=== PATIENT | female | born 1960 | race Caucasian/White ===

== ENCOUNTER 2016-09-17 06:41 | Emergency (ER) | payer MEDICAID ==
[~2016-09-17] VITALS: Ht 167.6 cm; Wt 75.0 kg
[~2016-09-17 06:41] MED LIST: CHOL50006 PO; LEVO75TA3 PO; LISI20TA PO
[2016-09-17 06:44] VITALS: BP 115/71; PULSE 114; RESP 16; TEMP 98.3; O2SAT 100
[2016-09-17] MEDS ORDERED: SODIUM CHLOR 0.9% 1000 ML INJ 1,000 ML IV SCH (07:18)
[2016-09-17] MEDS ORDERED: CHOL400D2 PO (07:23)
[2016-09-17] MEDS ORDERED: ADVA100A INH (07:23)
[2016-09-17] MEDS ORDERED: ALBU6.7H INH (07:23)
[2016-09-17] MEDS ORDERED: TOPI1CAP25 PO (07:23)
[2016-09-17] MEDS ORDERED: [UNRECOGNIZED DRUG - OTHER] (07:23)
[2016-09-17] MEDS ORDERED: OMEP20TA PO (07:23)
[2016-09-17 07:24] VITALS: O2SAT 97
[2016-09-17] MEDS ORDERED: MORPHINE SULFATE 4 MG/ML INJ IV PUSH ONE (07:30)
[2016-09-17] MEDS ORDERED: ONDANSETRON HCL 4 MG/2 ML VIAL IVP ONE (07:30)
[2016-09-17] MEDS ORDERED: SODIUM CHLOR 0.9% 1000 ML INJ 1,000 ML IV ONE (07:30)
[2016-09-17] MEDS ORDERED: SODIUM CHLORIDE 0.9% FLUSH 10 ML FLUSH IV FLUSH PRN (07:30)
--- NOTE | 2016-09-17 07:32 | PD ---
HPI Chief Complaint: Abdominal Pain Time Seen by Provider: 07:13 Travel History International Travel<30 days: No Contact w/Intl Traveler<30days: No Traveled to known affect area: No History of Present Illness HPI Patient is a 55-year-old female who presents to emergency with complaints of abdominal pain. Patient reports that she began to have abdominal pain 3 days ago, reports the pain is located to her lower abdomen. She reports that she has been on a low-carb diet, reports that the past 3 days, she has increased her carbohydrate intake has her family has been in town. She reports that she has noticed decreased bowel movements, patient did have 2 small bowel movements yesterday. Reports in increased crampy sensation to her lower abdomen. Patient reports increased dysuria, urinary urgency and frequency as well. Denies vaginal discharge or bleeding. Denies any nausea or vomiting. Reports constipation or diarrhea. Patient denies any recent travels or trips. Denies any new medications. Reports history of a hysterectomy in the past. PFSH Past Medical History Cardiovascular Problems: Yes (HTN) Past Surgical History Hysterectomy: Yes Social History Tobacco Use: No Allergies-Medications (Allergen,Severity, Reaction): Coded Allergies: Egg Allergy (Verified Allergy, Severe, Anaphylaxis, 09/17/16) Shellfish (Verified Allergy, Severe, Anaphylaxis, 09/17/16) Penicillin (Verified Allergy, Unknown, Anaphylaxis, 09/17/16) Reported Meds & Prescriptions Reported Meds & Active Scripts Active Reported Omeprazole 20 Mg Tab 20 Mg PO DAILY Proventil Hfa 6.7 GM Inh (Albuterol Sulfate) 90 Mcg/Act Aer 1 Puff INH Q4H PRN Advair Diskus Inh (Fluticasone-Salmeterol Inh) 100-50 Mcg/Blist Aer 1 Puff INH BID Rinse mouth after use. Trokendi Xr (Topiramate) 25 Mg Cap 25 Mg PO DAILY [phenterimine] Vitamin D (Cholecalciferol) 400 Unit/Ml Drops 400 Units PO DAILY Levothyroxine (Levothyroxine Sodium) 75 Mcg Tab 75 Mcg PO DAILY Lisinopril-Hctz 20-12.5 Mg Tab 1 Tab PO DAILY Review of Systems General / Constitutional: No: Fever, Chills Eyes: No: Visual changes HENT: No: Headaches Cardiovascular: No: Chest Pain or Discomfort Respiratory: No: Shortness of Breath Gastrointestinal: Positive: Nausea, Abdominal Pain, Constipation, No: Vomiting , Diarrhea Genitourinary: No: Dysuria Musculoskeletal: No: Pain Skin: No Rash Neurologic: No: Weakness Psychiatric: No: Depression Endocrine: No: Polydipsia Hematologic/Lymphatic: No: Easy Bruising Physical Exam Narrative GENERAL: Mild distress SKIN: Focused skin assessment warm/dry. HEAD: Atraumatic. Normocephalic. EYES: Pupils equal and round. No scleral icterus. No injection or drainage. ENT: No nasal bleeding or discharge. Mucous membranes pink and moist. NECK: Trachea midline. No JVD. CARDIOVASCULAR: Regular rate and rhythm. No murmur appreciated. RESPIRATORY: No accessory muscle use. Clear to auscultation. Breath sounds equal bilaterally. GASTROINTESTINAL: Abdomen soft, nondistended, mild tenderness to lower abdomen. No rebound or guarding. Hepatic and splenic margins not palpable. MUSCULOSKELETAL: No obvious deformities. No clubbing. No cyanosis. No edema. NEUROLOGICAL: Awake and alert. No obvious cranial nerve deficits. Motor grossly within normal limits. Normal speech. PSYCHIATRIC: Appropriate mood and affect; insight and judgment normal. Data Data Last Documented VS Vital Signs Date Time Temp Pulse Resp B/P Pulse Ox O2 Delivery O2 Flow Rate FiO2 09/17/16 07:54 97 18 102/64 97 Nasal Cannula 2 09/17/16 06:44 98.3 Orders Complete Blood Count With Diff (09/17/16 07:18) Comprehensive Metabolic Panel (09/17/16 07:18) Lipase (09/17/16 07:18) Prothrombin Time / Inr (Pt) (09/17/16 07:18) Act Partial Throm Time (Ptt) (09/17/16 07:18) Urinalysis - C+S If Indicated (09/17/16 07:18) Ct Abd/Pel W Iv Contrast(Rout) (09/17/16 07:18) Iv Access Insert/Monitor (09/17/16 07:18) Ecg Monitoring (09/17/16 07:18) Oximetry (09/17/16 07:18) Morphine Inj (Morphine Inj) (09/17/16 07:30) Ondansetron Inj (Zofran Inj) (09/17/16 07:30) Sodium Chlor 0.9% 1000 Ml Inj (Ns 1000 M (09/17/16 07:18) Sodium Chloride 0.9% Flush (Ns Flush) (09/17/16 07:30) Sodium Chlor 0.9% 1000 Ml Inj (Ns 1000 M (09/17/16 07:30) Iohexol 350 Inj (Omnipaque 350 Inj) (09/17/16 09:14) Labs Laboratory Tests Test 09/17/16 07:49 White Blood Count 8.6 TH/MM3 Red Blood Count 3.98 MIL/MM3 Hemoglobin 12.4 GM/DL Hematocrit 35.9 % Mean Corpuscular Volume 90.1 FL Mean Corpuscular Hemoglobin 31.2 PG Mean Corpuscular Hemoglobin 34.6 % Concent Red Cell Distribution Width 13.1 % Platelet Count 276 TH/MM3 Mean Platelet Volume 6.4 FL Neutrophils (%) (Auto) % Lymphocytes (%) (Auto) % Monocytes (%) (Auto) % Eosinophils (%) (Auto) % Basophils (%) (Auto) % Neutrophils # (Auto) TH/MM3 Lymphocytes # (Auto) TH/MM3 Monocytes # (Auto) TH/MM3 Eosinophils # (Auto) TH/MM3 Basophils # (Auto) TH/MM3 CBC Comment AUTO DIFF Differential Total Cells 100 Counted Neutrophils % (Manual) 34 % Band Neutrophils % 5 % Lymphocytes % 27 % Monocytes % 26 % Eosinophils % 6 % Basophils % 2 % Neutrophils # (Manual) 3.4 TH/MM3 Differential Comment FINAL DIFF MANUAL Atypical Lymphocytes % Prothrombin Time 9.7 SEC Prothromb Time International 0.9 RATIO Ratio Activated Partial 25.4 SEC Thromboplast Time Urine Color LIGHT-YELLOW Urine Turbidity CLEAR Urine pH 8.5 Urine Specific [place] 1.013 Urine Protein NEG mg/dL Urine Glucose (UA) NEG mg/dL Urine Ketones NEG mg/dL Urine Occult Blood NEG Urine Nitrite NEG Urine Bilirubin NEG Urine Urobilinogen LESS THAN 2.0 MG/DL Urine Leukocyte Esterase MOD Urine RBC 1 /hpf Urine WBC 7 /hpf Urine Squamous Epithelial 1 /hpf Cells Microscopic Urinalysis Comment CULT NOT INDICATED Sodium Level 137 MEQ/L Potassium Level 3.8 MEQ/L Chloride Level 104 MEQ/L Carbon Dioxide Level 26.8 MEQ/L Anion Gap 6 MEQ/L Blood Urea Nitrogen 12 MG/DL Creatinine 0.76 MG/DL Estimat Glomerular Filtration 79 ML/MIN Rate Random Glucose 109 MG/DL Calcium Level 9.0 MG/DL Total Bilirubin 0.5 MG/DL Aspartate Amino Transf 13 U/L (AST/SGOT) Alanine Aminotransferase 30 U/L (ALT/SGPT) Alkaline Phosphatase 86 U/L Total Protein 7.1 GM/DL Albumin 3.4 GM/DL Lipase 102 U/L [facility] Medical Decision Making Medical Screen Exam Complete: Yes Emergency Medical Condition: Yes Interpretation(s) Vital Signs Date Time Temp Pulse Resp B/P Pulse Ox O2 Delivery O2 Flow Rate FiO2 09/17/16 06:44 98.3 114 16 115/71 100 Differential Diagnosis Differential includes appendicitis, gastroenteritis, gastritis, electrolyte abnormality, cystitis Narrative Course Patient is a 55 year old female who presents to ER with complaints of lower abdominal pain which has been constant for the past 3 days. Reports dysuria with urinary urgency and frequency, with constipation. Reports that she normally has daily bowel movements, reports that she only had 2 small bowel movements yesterday. Patient with hx of hysterectomy in the past. Plan to obtain labs as well as ct studies of abdomen and pelvis. Will give IVF and antiemetics as well as pain medications. Vital Signs Date Time Temp Pulse Resp B/P Pulse Ox O2 Delivery O2 Flow Rate FiO2 09/17/16 07:54 97 18 102/64 97 Nasal Cannula 2 09/17/16 07:54 18 09/17/16 07:24 97 Nasal Cannula 2 09/17/16 06:44 98.3 114 16 115/71 100 Laboratory Tests Test 09/17/16 07:49 White Blood Count 8.6 TH/MM3 (4.0-11.0) Red Blood Count 3.98 MIL/MM3 (4.00-5.30) Hemoglobin 12.4 GM/DL (11.6-15.3) Hematocrit 35.9 % (35.0-46.0) Mean Corpuscular Volume 90.1 FL (80.0-100.0) Mean Corpuscular Hemoglobin 31.2 PG (27.0-34.0) Mean Corpuscular Hemoglobin 34.6 % Concent (32.0-36.0) Red Cell Distribution Width 13.1 % (11.6-17.2) Platelet Count 276 TH/MM3 (150-450) Mean Platelet Volume 6.4 FL (7.0-11.0) Neutrophils (%) (Auto) % (16.0-70.0) Lymphocytes (%) (Auto) % (9.0-44.0) Monocytes (%) (Auto) % (0.0-8.0) Eosinophils (%) (Auto) % (0.0-4.0) Basophils (%) (Auto) % (0.0-2.0) Neutrophils # (Auto) TH/MM3 (1.8-7.7) Lymphocytes # (Auto) TH/MM3 (1.0-4.8) Monocytes # (Auto) TH/MM3 (0-0.9) Eosinophils # (Auto) TH/MM3 (0-0.4) Basophils # (Auto) TH/MM3 (0-0.2) CBC Comment AUTO DIFF Differential Total Cells 100 Counted Neutrophils % (Manual) 34 % (16-70) Band Neutrophils % 5 % (0-6) Lymphocytes % 27 % (9-44) Monocytes % 26 % (0-8) Eosinophils % 6 % (0-4) Basophils % 2 % (0-2) Neutrophils # (Manual) 3.4 TH/MM3 (1.8-7.7) Differential Comment FINAL DIFF MANUAL Atypical Lymphocytes % (0-0) Prothrombin Time 9.7 SEC (9.8-11.6) Prothromb Time International 0.9 RATIO Ratio Activated Partial 25.4 SEC Thromboplast Time (24.3-30.1) Urine Color LIGHT-YELLOW (YELLW/STRAW) Urine Turbidity CLEAR (CLEAR) Urine pH 8.5 (5.0-8.5) Urine Specific [place]olley 1.013 (1.002-1.035) Urine Protein NEG mg/dL (NEG-TRACE) Urine Glucose (UA) NEG mg/dL (NEG) Urine Ketones NEG mg/dL (NEG) Urine Occult Blood NEG (NEG) Urine Nitrite NEG (NEG) Urine Bilirubin NEG (NEG) Urine Urobilinogen LESS THAN 2.0 MG/DL (LESS THAN 2.0) Urine Leukocyte Esterase MOD (NEG) Urine RBC 1 /hpf (0-3) Urine WBC 7 /hpf (0-5) Urine Squamous Epithelial 1 /hpf (0-5) Cells Microscopic Urinalysis Comment CULT NOT INDICATED Sodium Level 137 MEQ/L (136-145) Potassium Level 3.8 MEQ/L (3.5-5.1) Chloride Level 104 MEQ/L (98-107) Carbon Dioxide Level 26.8 MEQ/L (21.0-32.0) Anion Gap 6 MEQ/L (5-15) Blood Urea Nitrogen 12 MG/DL (7-18) Creatinine 0.76 MG/DL (0.50-1.00) Estimat Glomerular Filtration 79 ML/MIN (>89) Rate Random Glucose 109 MG/DL (74-106) Calcium Level 9.0 MG/DL (8.5-10.1) Total Bilirubin 0.5 MG/DL (0.2-1.0) Aspartate Amino Transf 13 U/L (15-37) (AST/SGOT) Alanine Aminotransferase 30 U/L (10-53) (ALT/SGPT) Alkaline Phosphatase 86 U/L (45-117) Total Protein 7.1 GM/DL (6.4-8.2) Albumin 3.4 GM/DL (3.4-5.0) Lipase 102 U/L (73-393) Last Impressions Abdomen/Pelvis CT 09/17/16 0718 Signed Impressions: Service Date/Time: Saturday, September 17, 2016 09:07 - CONCLUSION: Inflammation around the sigmoid colon adjacent to numerous diverticula are suspicious for diverticulitis. There is a trace free fluid throughout the pelvis without drainable abscess or mass. Scott Gamble MD I reviewed all labs and all studies with patient in detail, patient with sigmoid diverticulitis. Patient safe to be discharged to home with outpatient follow up. Understands need to follow up with her pcp as well as gi as outpatient, will return to ER if she develops worsening or progressing symptoms. Diagnosis Primary Impression: Diverticulitis Qualified Code: K57.92 - Diverticulitis of intestine without perforation or abscess without bleeding, unspecified part of intestinal tract Additional Impression: Abdominal pain Qualified Code: R10.32 - Left lower quadrant pain Patient Instructions: General Instructions, Narcotic given in the ED Additional Instructions: Please follow-up with your primary care doctor in 24-48 hours Please take all antibiotics as prescribed Return to emergency room if symptoms worsen or progress Return to the emergency room as needed Please follow-up with well drill operator as soon as possible Please bring the copy of your radiology report to doctor's office for follow-up on all findings from today Med/Other Pt SpecificInfo: Prescription(s) given Scripts Metronidazole (Flagyl)500 Mg [id number] Mg PO QID 10 Days Ref 0 Prov:Lucia Melvin DO 09/17/16 Ciprofloxacin (Cipro)500 Mg [id number] Mg PO BID 10 Days Ref 0 Prov:Lucia Melvin DO 09/17/16 Disposition: 01 DISCHARGE HOME Condition: Stable Lucia Melvin DO Sep 17, 2016 07:32
[2016-09-17 07:54] VITALS: BP 102/64; PULSE 97; RESP 18; O2SAT 97
[2016-09-17 08:15] LABS: HEMATOCRIT 35.9 % (35.0-46.0); MEAN CELL VOLUME 90.1 FL (80.0-100.0); MEAN CORPUSCULAR HEMOGLOBIN 31.2 PG (27.0-34.0); MEAN CORPUSCULAR HGB CONC 34.6 % (32.0-36.0); PLATELET COUNT 276 TH/MM3 (150-450); RED BLOOD COUNT 3.98 MIL/MM3 (4.00-5.30); RED CELL DISTRIBUTION WIDTH 13.1 % (11.6-17.2); WHITE BLOOD COUNT 8.6 TH/MM3 (4.0-11.0)
[2016-09-17 08:16] LABS: HEMO FLAGS AUTO DIFF
[2016-09-17 08:23] LABS: APTT (PATIENT) 25.4 SEC (24.3-30.1); INTERNATIONAL NORMALIZED RATIO 0.9 RATIO; PROTHROMBIN TIME - PATIENT 9.7 SEC (9.8-11.6)
[2016-09-17 08:39] LABS: ALT (GPT) 30 U/L (10-53); ANION GAP 6 MEQ/L (5-15); AST (GOT) 13 U/L (15-37); BICARBONATE 26.8 MEQ/L (21.0-32.0); BLOOD UREA NITROGEN 12 MG/DL (7-18); CHLORIDE 104 MEQ/L (98-107); GLOMERULAR FILTRATION RATE 79 ML/MIN (>89); POTASSIUM 3.8 MEQ/L (3.5-5.1); SODIUM (NA) 137 MEQ/L (136-145)
[2016-09-17 08:42] LABS: ALKALINE PHOSPHATASE 86 U/L (45-117); TOTAL BILIRUBIN ADULT 0.5 MG/DL (0.2-1.0)
[2016-09-17 08:44] LABS: BLOOD, URINE NEG (NEG); COMMENT (UR) CULT NOT INDICATED; CULTURE IF INDICATED CULT NOT INDICATED; GLUCOSE,URINE NEG (NEG); KETONE, URINE NEG (NEG); NITRITE,URINE NEG (NEG); PH, URINE 8.5 (5.0-8.5); SQUAMOUS EPITHELIAL CELL URINE 1 /hpf (0-5); URINE COLOR LIGHT-YELLOW (YELLW/STRAW)
[2016-09-17 09:03] LABS: BANDS 5 % (0-6); BASOPHILS 2 % (0-2); EOSINOPHILS 6 % (0-4); NEUTROPHIL # MANUAL DIFF 3.4 TH/MM3 (1.8-7.7); POLYS (SEG NEUTROPHILS) 34 % (16-70); WBC DIFF SAMPLE 100
[2016-09-17 09:05] LABS: SCAN/DIFF FINAL DIFF MANUAL
[2016-09-17] MEDS ORDERED: IOHEXOL 350 MG/ML 10 ML VIAL (for RAD DIAG) IV ONE (09:14)
--- NOTE | 2016-09-17 09:26 | RADRPT ---
EXAM DATE/TIME: 09/17/2016 09:07 [facility] COMPARISON: No previous studies available for comparison. INDICATIONS : Lower abdominal pain. IV CONTRAST: 68 cc Omnipaque 350 (iohexol) IV ORAL CONTRAST: No oral contrast ingested. RADIATION DOSE: 9.96 CTDIvol (mGy) MEDICAL HISTORY : Cardiovascular disease. SURGICAL HISTORY : Hysterectomy. ENCOUNTER: Initial ACUITY: 1 day PAIN SCALE: 5/10 LOCATION: Bilateral lower quadrant abdomen. TECHNIQUE: Volumetric scanning of the abdomen and pelvis was performed. Using automated exposure control and ad justment of the mA and/or kV according to patient size, radiation dose was kept as low as reasonably achievable to obtain optimal diagnostic quality images. DICOM format image data is available electro nically for review and comparison. FINDINGS: LOWER LUNGS: The visualized lower lungs are clear. LIVER: Homogeneous density without lesion. There is no dilation of the biliary tree. Few non- calcified ga llstones. SPLEEN: Normal size without lesion. PANCREAS: Within normal limits. KIDNEYS: Normal in size and shape. There is no mass, stone or hydronephrosis. ADRENAL GLANDS: Within normal limits. VASCULAR: There is no aortic aneurysm. BOWEL/MESENTERY: There is definite inflammation with wall indistinctness and a tiny amount of fluid adjacent to the si gmoid colon suspicious for diverticulitis. I do not see drainable fluid collection or abscess. The ap pendix is normal. ABDOMINAL WALL: Within normal limits. RETROPERITONEUM: There is no lymphadenopathy. BLADDER: No wall thickening or mass. REPRODUCTIVE: Within normal limits. INGUINAL: There is no lymphadenopathy or hernia. MUSCULOSKELETAL: Within normal limits for patient age. CONCLUSION: Inflammation around the sigmoid colon adjacent to numerous diverticula are suspicious for diverticuli tis. There is a trace free fluid throughout the pelvis without drainable abscess or mass. Scott Gamble MD on September 17, 2016 at 9:22 Board Certified Radiologist. This report was verified electronically.
[2016-09-17] MEDS ORDERED: METR-1 PO (09:42)
[2016-09-17] MEDS ORDERED: CIPR-9 PO (09:42)
[2016-09-17] MEDS ORDERED: CIPROFLOXACIN 400 MG PREMIX 200 ML IV ONE (09:45)
[2016-09-17] MEDS ORDERED: metroNIDAZOLE 500 MG INJ 100 ML IV ONE (09:45)
== END 2016-09-17 11:35 | disposition home or self-care (01) ==
LOC: NEPC 06:41
DX: K57.92 Diverticulitis of intestine, part unspecified, without perforation or abscess without bleeding (principal); R30.0 Dysuria; K59.00 Constipation, unspecified; I10 Essential (primary) hypertension; Z79.52 Long term (current) use of systemic steroids; Z79.899 Other long term (current) drug therapy
CPT/HCPCS: 74177; 80053; 81001; 83690; 85007; 85027; 85610; 85730; 96361; 96365; 96367; 96375; 99285; J0744; J2270; J2405; J7030; Q9967

== ENCOUNTER 2016-09-25 01:03 | Observation (INO) | payer MEDICAID, OTHER ==
[~2016-09-25] VITALS: Ht 162.6 cm; Wt 75.0 kg
[2016-09-25] VITALS (11 sets, daily range): BP systolic 85–119; BP diastolic 51–64; PULSE 64–90; RESP 15–18; TEMP 97.8–98.1; O2SAT 96–100
[~2016-09-25 01:03] MED LIST changes: +ADVA100A INH; +ALBU6.7H INH; +CHOL400D2 PO; -CHOL50006 PO; +CIPR-9 PO; +METR-1 PO; +OMEP20TA PO; +TOPI1CAP25 PO; +[UNRECOGNIZED DRUG - OTHER]
[2016-09-25] MEDS ORDERED: VANCOMYCIN INJ 1,000 MG in SODIUM CHLOR 0.9% 250 ML INJ 250 ML IV STA (01:48)
[2016-09-25] MEDS ORDERED: AZTREONAM INJ 2,000 MG in SODIUM CHLORIDE 0.9% INJ 100 ML IV STA (01:48)
[2016-09-25] MEDS ORDERED: metroNIDAZOLE 500 MG INJ 100 ML IV STA (01:48)
[2016-09-25] MEDS ORDERED: SODIUM CHLOR 0.9% 1000 ML INJ 1,000 ML IV ONE ×2 (01:48)
[2016-09-25] MEDS ORDERED: SODIUM CHLOR 0.9% 1000 ML INJ 400 ML IV ONE (01:48)
[2016-09-25 01:57] LABS: BASOPHIL # 0.1 TH/MM3 (0-0.2); BASOPHIL % 0.7 % (0.0-2.0); EOSINOPHIL # 0.9 TH/MM3 (0-0.4); EOSINOPHIL % 10.8 % (0.0-4.0); HEMATOCRIT 38.8 % (35.0-46.0); LYMPH % 18.7 % (9.0-44.0); LYMPHOCYTE # 1.6 TH/MM3 (1.0-4.8); MEAN CELL VOLUME 89.8 FL (80.0-100.0); MEAN CORPUSCULAR HEMOGLOBIN 31.1 PG (27.0-34.0); MEAN CORPUSCULAR HGB CONC 34.6 % (32.0-36.0); MONO % 47.1 % (0.0-8.0); NEUT % 22.7 % (16.0-70.0); PLATELET COUNT 401 TH/MM3 (150-450); RED BLOOD COUNT 4.32 MIL/MM3 (4.00-5.30); RED CELL DISTRIBUTION WIDTH 12.8 % (11.6-17.2); WHITE BLOOD COUNT 8.6 TH/MM3 (4.0-11.0)
[2016-09-25 02:00] LABS: BLOOD, URINE NEG (NEG); GLUCOSE,URINE NEG (NEG); HYALINE CAST, URINE 1 /lpf (RARE); KETONE, URINE NEG (NEG); NITRITE,URINE NEG (NEG); SQUAMOUS EPITHELIAL CELL URINE <1 /hpf (0-5); URINE COLOR YELLOW (YELLW/STRAW)
--- NOTE | 2016-09-25 02:07 | PD ---
HPI Chief Complaint: Abdominal Pain Time Seen by Provider: 01:36 Travel History International Travel<30 days: No Contact w/Intl Traveler<30days: No Traveled to known affect area: No History of Present Illness HPI The patient is a 55 year old female who presents to the [facility] emergency department with a history of not feeling well over the past week. The patient was seen on a Sunday in the emergency department was diagnosed with diverticulitis. The patient reports that the lower abdominal pain has improved since starting the ciprofloxacin and Flagyl. She does however report that this evening after eating a bagel and cream cheese few minutes later she began to have a new abdominal pain in the midepigastric and right upper quadrant of the abdomen. She reports that she has had this pain in the past although it was less severe previously. She was told that it was likely related to her gallbladder. She reports that the first time she ever had this type of pain was 2-3 years ago. She reports that she has had a colonoscopy 5 years ago that was reportedly unremarkable. She reports that the diagnosis of diverticulitis with the first occurrence a week ago. She has been taking the antibiotic as prescribed. She reports that she has had chills and a subjective fever. She has not checked her temperature at home. She reports having nausea without vomiting. She reports that the pain is an aching sensation in the upper abdomen. She denies any dysuria, urinary frequency, or urinary urgency. She reports that she has started to have loose stools on Sunday. She reports on she had approximately 15 and since then she has had 4 per day. She denies having any blood in her stool or black or tarry stools. She denies having any known mucus in her stool. On review of systems otherwise, the patient denies any cough, congestion, neck pain, chest pain, shortness of breath ,or neurologic symptoms. The patient incidentally also reports that she has worsening acid reflux over the last week. [facility] Past Medical History Narrative Medical The patient's past medical history is significant for gallstones, hypertension, or ecchymosis of diverticulitis, hypothyroid disorder, acid reflux, asthma. Cardiovascular Problems: Yes (HTN) Diminished Hearing: No Diverticulitis: Yes Gastrointestinal Disorders: Yes (GALL STONES) GERD: Yes Hypertension: Yes Menopausal: Yes Past Surgical History Narrative Surgical The patient's past surgical history is significant for a hysterectomy. Hysterectomy: Yes Social History Alcohol Use: Yes (OCC) Tobacco Use: No Substance Use: No Allergies-Medications (Allergen,Severity, Reaction): Coded Allergies: Egg Allergy (Verified Allergy, Severe, Anaphylaxis, 09/25/16) Shellfish (Verified Allergy, Severe, Anaphylaxis, 09/25/16) Penicillin (Verified Allergy, Unknown, Anaphylaxis, 09/25/16) Reported Meds & Prescriptions Reported Meds & Active Scripts Active Flagyl (Metronidazole) 500 Mg Tab 500 Mg PO QID 10 Days Cipro (Ciprofloxacin HCl) 500 Mg Tab 500 Mg PO BID 10 Days Reported Omeprazole 20 Mg Tab 20 Mg PO DAILY Proventil Hfa 6.7 GM Inh (Albuterol Sulfate) 90 Mcg/Act Aer 1 Puff INH Q4H PRN Advair Diskus Inh (Fluticasone-Salmeterol Inh) 100-50 Mcg/Blist Aer 1 Puff INH BID Rinse mouth after use. [phenterimine] Vitamin D (Cholecalciferol) 400 Unit/Ml Drops 400 Units PO DAILY Levothyroxine (Levothyroxine Sodium) 75 Mcg Tab 75 Mcg PO DAILY Lisinopril-Hctz 20-12.5 Mg Tab 1 Tab PO DAILY Review of Systems Except as stated in HPI: all other systems reviewed are Neg General / Constitutional: No: Fever Eyes: No: Visual changes HENT: No: Headaches Cardiovascular: No: Chest Pain or Discomfort Respiratory: No: Shortness of Breath Gastrointestinal: Positive: Nausea, Diarrhea, Abdominal Pain, Changes in Bowel Habits, Indigestion, No: Vomiting, Hematemesis, Hematochezia, Loss of Appetite Genitourinary: No: Dysuria Musculoskeletal: No: Pain Skin: No Rash Neurologic: No: Weakness Psychiatric: No: Depression Endocrine: No: Polydipsia Hematologic/Lymphatic: No: Easy Bruising Physical Exam Narrative General: The patient is a well-developed well-nourished female in no acute distress. Head and Neck exam: Head is normocephalic atraumatic. Eyes: EOMI, pupils are equal round and reactive to light. Nose: Midline septum with pink mucous membranes Mouth: Dentition unremarkable. Moist mucus membranes. Posterior oropharynx is not erythematous. No tonsillar hypertrophy. Uvula midline. Airway patent. Neck: No palpable lymphadenopathy. No nuchal rigidity. No thyromegaly. Cardiovascular: Regular rate and rhythm without murmurs, gallops, or rubs. No pulse deficit to the extremities on simultaneous auscultation and palpation of her radial artery. Lungs: Clear to auscultation bilaterally. No wheezes, rhonchi, or rales. Abdomen: Soft, with tenderness on palpation of the midepigastric area and right upper quadrant of the abdomen. No guarding, rebound, or rigidity. Negative [place] sign. No other tenderness on palpation of the other quadrants of the abdomen. Normal bowel sounds are audible. Extremities: No clubbing, cyanosis, or edema. 2+ pulses in all 4 extremities. No Tenderness on palpation Back: No spinous process tenderness to palpation. The patient has right-sided CVA tenderness on palpation. Neurologic Exam: Grossly nonfocal. Skin Exam: No rash noted. Intact skin that is warm and dry. Data Data Last Documented VS Vital Signs Date Time Temp Pulse Resp B/P Pulse Ox O2 Delivery O2 Flow Rate FiO2 09/25/16 02:00 83 16 92/61 100 Room Air 09/25/16 01:14 97.8 Orders Electrocardiogram (09/25/16 01:37) Complete Blood Count With Diff (09/25/16 01:37) Comprehensive Metabolic Panel (09/25/16 01:37) C-Reactive Protein (Crp) (09/25/16 01:37) Lipase (09/25/16 01:37) Urinalysis - C+S If Indicated (09/25/16 01:37) Iv Access Insert/Monitor (09/25/16 01:37) Ecg Monitoring (09/25/16 01:37) Oximetry (09/25/16 01:37) Lactic Acid Sepsis Protocol (09/25/16 01:48) Blood Culture (09/25/16 01:48) Sodium Chlor 0.9% 1000 Ml Inj (Ns 1000 M (09/25/16 01:48) Sodium Chlor 0.9% 1000 Ml Inj (Ns 1000 M (09/25/16 01:48) Sodium Chlor 0.9% 1000 Ml Inj (Ns 1000 M (09/25/16 01:48) Vancomycin Inj (Vancomycin Inj) (09/25/16 01:48) Aztreonam Inj (Azactam Inj) (09/25/16 01:48) Metronidazole 500 Mg Inj (Flagyl 500 Mg (09/25/16 01:48) Chest, Single Ap (09/25/16 01:48) Ct Abd/Pel W Iv Contrast(Rout) (09/25/16 ) Iohexol 350 Inj (Omnipaque 350 Inj) (09/25/16 02:39) Enteric Path (Stool) (09/25/16 03:25) C Diff Toxin Pcr (09/25/16 03:25) Stool Wbc (Leukocytes) (09/25/16 03:25) Admit Order (Ed Use Only) (09/25/16 03:25) Labs Laboratory Tests Test 09/25/16 09/25/16 09/25/16 01:44 01:45 01:48 Urine Color YELLOW Urine Turbidity CLEAR Urine pH 5.0 Urine Specific [place] 1.014 Urine Protein NEG mg/dL Urine Glucose (UA) NEG mg/dL Urine Ketones NEG mg/dL Urine Occult Blood NEG Urine Nitrite NEG Urine Bilirubin NEG Urine Urobilinogen LESS THAN 2.0 MG/DL Urine Leukocyte Esterase TRACE Urine RBC LESS THAN 1 /hpf Urine WBC LESS THAN 1 /hpf Urine Squamous Epithelial <1 /hpf Cells Urine Hyaline Casts 1 /lpf Microscopic Urinalysis Comment CULT NOT INDICATED White Blood Count 8.6 TH/MM3 Red Blood Count 4.32 MIL/MM3 Hemoglobin 13.4 GM/DL Hematocrit 38.8 % Mean Corpuscular Volume 89.8 FL Mean Corpuscular Hemoglobin 31.1 PG Mean Corpuscular Hemoglobin 34.6 % Concent Red Cell Distribution Width 12.8 % Platelet Count 401 TH/MM3 Mean Platelet Volume 5.7 FL Neutrophils (%) (Auto) 22.7 % Lymphocytes (%) (Auto) 18.7 % Monocytes (%) (Auto) 47.1 % Eosinophils (%) (Auto) 10.8 % Basophils (%) (Auto) 0.7 % Neutrophils # (Auto) 2.0 TH/MM3 Lymphocytes # (Auto) 1.6 TH/MM3 Monocytes # (Auto) 4.0 TH/MM3 Eosinophils # (Auto) 0.9 TH/MM3 Basophils # (Auto) 0.1 TH/MM3 CBC Comment AUTO DIFF Differential Comment AUTO DIFF CONFIRMED Sodium Level 136 MEQ/L Potassium Level 4.3 MEQ/L Chloride Level 104 MEQ/L Carbon Dioxide Level 24.4 MEQ/L Anion Gap 8 MEQ/L Blood Urea Nitrogen 25 MG/DL Creatinine 1.19 MG/DL Estimat Glomerular Filtration 47 ML/MIN Rate Random Glucose 106 MG/DL Calcium Level 9.1 MG/DL Total Bilirubin 0.1 MG/DL Aspartate Amino Transf 11 U/L (AST/SGOT) Alanine Aminotransferase 21 U/L (ALT/SGPT) Alkaline Phosphatase 75 U/L C-Reactive Protein 0.41 MG/DL Total Protein 7.4 GM/DL Albumin 3.7 GM/DL Lipase 208 U/L Lactic Acid Level 1.4 mmol/L MDM Medical Decision Making Medical Screen Exam Complete: Yes Emergency Medical Condition: Yes Medical Record Reviewed: Yes Interpretation(s) Last Impressions Chest X-Ray 09/25/16 0148 Signed Impressions: Service Date/Time: Sunday, September 25, 2016 02:01 - CONCLUSION: No acute disease. Emmanuel Valiente MD Abdomen/Pelvis CT 09/25/16 0000 Signed Impressions: Service Date/Time: Sunday, September 25, 2016 02:36 - CONCLUSION: 1. The previously noted inflammatory changes adjacent to the sigmoid colon on the prior study has resolved. 2. The appendix is unremarkable. 3. A few tiny stones in the gallbladder. No biliary tract obstruction. 4. No other new or significant changes compared to the prior study. Emmanuel Valiente MD Differential Diagnosis Perforated bowel, versus ischemic bowel, versus abscess, versus acute cholecystitis, versus biliary colic, versus pyelonephritis Narrative Course During the course of the patients emergency department visit, the patients history, examination, and differential diagnosis were reviewed with the patient. The patient had IV access obtained and blood work sent for analysis. The patient was placed on the monitor car operator with oximetry and blood pressure monitoring. An ECG was done on arrival. The patient's ECG reveals a sinus rhythm heart rate of 84, QRS duration 89 ms, QTC 420 ms, no acute ST segment elevation or depression, T waves are inverted in V1. The patient arrives with a blood pressure of 85/52 on initial evaluation. A sepsis workup was started. The patient was initially provided a 30 mL per KG IV fluid bolus. The patient was given Azactam, Flagyl, and vancomycin IV. A CT scan of the abdomen and pelvis was ordered, chest x-ray was ordered, urine will be sent for analysis. The patients laboratory studies were reviewed and remarkable for a white count of 8.6, hemoglobin 13.4, platelets 401 with 47.1 monocytes, eosinophils 10.8 , CMP is remarkable for a BUN of 25, creatinine 1.19, total bilirubin 0.1, AST 11 , C-reactive protein 0.41, lipase 208, lactic acid 1.4, urinalysis shows trace leukocyte esterase, otherwise unremarkable, culture not indicated. Radiology studies were reviewed and remarkable for a chest x-ray that showed no acute abnormality. CT scan of the abdomen and pelvis shows that the previously noted inflammatory changes adjacent to the sigmoid colon on the prior study have resolved, appendix is unremarkable, a few tiny stones in the gallbladder and noted area no biliary tract obstruction, no other new or significant changes compared to prior study. The patients results were discussed with the patient, including the plan of care. I explained that further testing and/ or monitoring is indicated based on the patients history, examination, and/ or laboratory findings. Therefore, I recommended admission for additional evaluation. The patient expressed understanding and was agreeable with this plan. The patient was admitted to the hospital in guarded condition and sent to a bed under the care of the [facility] hospitalist group. Physician Communication Physician Communication The patient's case was discussed with the [facility]ist group who did agree to admit the patient for further evaluation and treatment at this time. Diagnosis Primary Impression: Abdominal pain Qualified Code: R10.11 - Right upper quadrant abdominal pain Additional Impressions: Dehydration Hypotension Qualified Code: I95.9 - Hypotension, unspecified hypotension type Admitting Information Admitting Physician Requests: Admit Shayy Liao MD Sep 25, 2016 02:07
[2016-09-25 02:15] LABS: ALT (GPT) 21 U/L (10-53); ANION GAP 8 MEQ/L (5-15); AST (GOT) 11 U/L (15-37); BICARBONATE 24.4 MEQ/L (21.0-32.0); BLOOD UREA NITROGEN 25 MG/DL (7-18); CHLORIDE 104 MEQ/L (98-107); GLOMERULAR FILTRATION RATE 47 ML/MIN (>89); POTASSIUM 4.3 MEQ/L (3.5-5.1); SODIUM (NA) 136 MEQ/L (136-145)
[2016-09-25 02:17] LABS: ALKALINE PHOSPHATASE 75 U/L (45-117); TOTAL BILIRUBIN ADULT 0.1 MG/DL (0.2-1.0)
[2016-09-25 02:19] LABS: COMMENT (UR) CULT NOT INDICATED; CULTURE IF INDICATED CULT NOT INDICATED
[2016-09-25 02:19] LABS: HEMO FLAGS AUTO DIFF
[2016-09-25] MEDS ORDERED: IOHEXOL 350 MG/ML 10 ML VIAL (for RAD DIAG) IV ONE (02:39)
--- NOTE | 2016-09-25 02:50 | RADRPT ---
EXAM DATE/TIME: 09/25/2016 02:01 [facility] COMPARISON: No previous studies available for comparison. INDICATIONS : Chest pain beginning tonight. MEDICAL HISTORY : None. SURGICAL HISTORY : None. ENCOUNTER: Initial ACUITY: 1 day PAIN SCORE: 7/10 LOCATION: Bilateral chest FINDINGS: A single view of the chest demonstrates the lungs to be symmetrically aerated without evidence of mas s, infiltrate or effusion. The cardiomediastinal contours are unremarkable. Osseous structures are intact. CONCLUSION: No acute disease. Emmanuel Valiente MD on September 25, 2016 at 2:48 Board Certified Radiologist. This report was verified electronically.
[2016-09-25 02:51] LABS: SCAN/DIFF AUTO DIFF CONFIRMED
--- NOTE | 2016-09-25 02:56 | RADRPT ---
EXAM DATE/TIME: 09/25/2016 02:36 [facility] COMPARISON: CT ABDOMEN & PELVIS W CONTRAST, September 17, 2016, 9:07. INDICATIONS : Right upper quadrant pain. IV CONTRAST: 90 cc Omnipaque 350 (iohexol) IV ORAL CONTRAST: No oral contrast ingested. RADIATION DOSE: 11.91 CTDIvol (mGy) MEDICAL HISTORY : Diverticulitis. Gastroesophageal reflux disease. Hypertension.Gallstones. SURGICAL HISTORY : Hysterectomy. ENCOUNTER: Initial ACUITY: 1 day PAIN SCALE: 6/10 LOCATION: Right upper quadrant TECHNIQUE: Volumetric scanning of the abdomen and pelvis was performed. Using automated exposure control and ad justment of the mA and/or kV according to patient size, radiation dose was kept as low as reasonably achievable to obtain optimal diagnostic quality images. DICOM format image data is available electro nically for review and comparison. FINDINGS: LOWER LUNGS: The visualized lower lungs are clear. LIVER: Homogeneous density without lesion. There is no dilation of the biliary tree. A few tiny calcified g allstones. No surrounding inflammatory changes. SPLEEN: Normal size without lesion. PANCREAS: Within normal limits. KIDNEYS: Normal in size and shape. There is no mass, stone or hydronephrosis. ADRENAL GLANDS: Within normal limits. VASCULAR: There is no aortic aneurysm. BOWEL/MESENTERY: The stomach, small bowel, and colon demonstrate no acute abnormality. There is no free intraperitone al air or fluid. There is some scattered diverticula of the sigmoid colon. The previously noted infla mmatory changes have resolved. The appendix is unremarkable. There is stool in the colon. ABDOMINAL WALL: Within normal limits. RETROPERITONEUM: There is no lymphadenopathy. BLADDER: No wall thickening or mass. REPRODUCTIVE: Within normal limits. INGUINAL: There is no lymphadenopathy or hernia. MUSCULOSKELETAL: Within normal limits for patient age. CONCLUSION: 1. The previously noted inflammatory changes adjacent to the sigmoid colon on the prior study has res olved. 2. The appendix is unremarkable. 3. A few tiny stones in the gallbladder. No biliary tract obstruction. 4. No other new or significant changes compared to the prior study. Emmanuel Valiente MD on September 25, 2016 at 2:50 Board Certified Radiologist. This report was verified electronically.
[2016-09-25] MEDS ORDERED: ACETAMINOPHEN 325 MG TAB PO PRN (03:30)
[2016-09-25] MEDS ORDERED: SENNOSIDES 8.6 MG TAB PO PRN (03:30)
[2016-09-25] MEDS ORDERED: LACTULOSE SYRUP 20 GM/30 ML CUP PO PRN (03:30)
[2016-09-25] MEDS ORDERED: BISACODYL 10 MG SUPP RECTAL PRN (03:30)
[2016-09-25] MEDS ORDERED: ONDANSETRON HCL 4 MG/2 ML VIAL IVP PRN (03:30)
[2016-09-25] MEDS ORDERED: NALOXONE HCL 0.4 MG/ML AMP IV PRN (03:30)
[2016-09-25] MEDS ORDERED: SODIUM CHLORIDE 0.9% FLUSH 10 ML FLUSH IV FLUSH PRN (03:30)
[2016-09-25] MEDS ORDERED: MAGNESIUM HYDROXIDE SUSP 30 ML CUP PO PRN (03:30)
[2016-09-25] MEDS: SODIUM CHLOR 0.9% 1000 ML INJ 1,000 ML IV SCH ×3 (03:45→23:29)
[2016-09-25] MEDS: LEVOTHYROXINE SODIUM 75 MCG TAB PO SCH (06:49)
[2016-09-25] MEDS: DOCUSATE SODIUM 50 MG/SENNA 8.6 MG TAB PO SCH ×2 (07:24→20:30)
[2016-09-25] MEDS ORDERED: metroNIDAZOLE 500 MG TAB PO SCH (09:00)
[2016-09-25] MEDS: BUDESONIDE-FORMOTEROL 80/4.5 MCG INHALER INH SCH ×2 (09:00→20:29)
[2016-09-25] MEDS ORDERED: CIPROFLOXACIN 500 MG TAB PO SCH (09:00)
[2016-09-25] MEDS ORDERED: PANTOPRAZOLE SOD 20 MG DELAYED RELEASE TAB PO SCH (09:00)
--- NOTE | 2016-09-25 10:11 | HP.UPD ---
H&P Update Note There is a 55-year-old female who last week was treated for diverticulitis. She also was diagnosed with gallstones. She received a course of antibiotics. That was followed by diarrhea starting last . The diarrhea got worse than better. Yesterday she has a severe auto 4 hours of right lower quadrant abdominal pain. She did have some chills and sweats but she doesn't know whether she had any fever. The pain is mostly in the right upper quadrant. Very tender on palpation. She did have nausea but no vomiting. No blood in her stools. She was seen by the undersigned's morning of . She is to continue her analgesics, antibiotics, IV fluids, she is also to have GI consultation, send stool for C. difficile and check HIDA scan. Full history and physical to follow Carmen Almanzar MD Sep 25, 2016 10:08
[2016-09-25 10:41] LABS: C. DIFF EPI 027 PRESUMPTIVE NEGATIVE (NEGATIVE); C. DIFF TOXIN PCR NEGATIVE (NEGATIVE)
[2016-09-25] MEDS ORDERED: MORPHINE SULFATE 8 MG/ML INJ IV PUSH PRN (11:00)
[2016-09-25] MEDS ORDERED: SINCALIDE 5 MCG/5 ML VIAL IV ONE (13:14)
--- NOTE | 2016-09-25 14:26 | RADRPT ---
EXAM DATE/TIME: 09/25/2016 12:23 [facility] COMPARISON: No previous studies available for comparison. INDICATIONS : Abdominal pain. DOSE: 4 mCi Tc99m Mebrofenin IV MEDICATION: 1.5 mcg Cholecystokinin IV; No symptomatic response. Cholecystokinin was administered by slow infusion over 8 minutes beginning at 60 minutes. MEDICAL HISTORY : Hypertension. Gastroesophageal reflux disease. Diverticulitis. SURGICAL HISTORY : Hysterectomy. ENCOUNTER: Initial ACUITY: 1 day PAIN SCALE: 6/10 LOCATION: Right upper quadrant TECHNIQUE: Following the intravenous administration of radiotracer, dynamic sequential image were performed with continuous acquisition. Time-activity curves were generated. FINDINGS: HEPATIIC KINETICS: There is prompt uptake of radiotracer in the liver. No focal defects are seen. There is normal rate of washout from the hepatic parenchyma. BILIARY CLEARANCE: Activity is first seen in the extrahepatic biliary system at 20> minutes. There is normal excretion into the small bowel. GALLBLADDER: Activity is first seen in the gallbladder at <25> minutes. POST CHOLECYSTOKININ: After Cholecystokinin administration, there is prompt emptying of the gallbladder with a <25>% ejecti on fraction. Common bile duct kinetics are normal and there is no evidence of biliary obstruction. BILIARY ENTERIC REFLUX: None observed. CLINICAL: The patient was asymptomatic after Cholecystokinin administration. CONCLUSION: Normal examination. No evidence of biliary tree obstruction or acute cholecystitis. Scott Gamble MD on September 25, 2016 at 14:23 Board Certified Radiologist. This report was verified electronically.
[2016-09-25] MEDS: LEVOFLOXACIN 750 MG PREMIX INJ 150 ML IV SCH (14:37)
[2016-09-25] MEDS: SODIUM CHLORIDE 0.9% FLUSH 10 ML FLUSH IV FLUSH SCH ×2 (14:37→21:00)
[2016-09-25] MEDS: metroNIDAZOLE 500 MG INJ 100 ML IV SCH ×2 (14:38→18:47)
--- NOTE | 2016-09-25 14:50 | HHI.HP ---
[facility] Shen Slade M.D. Admission Diagnosis Dehydration, diarrhea, hypotension Diagnoses: Chief Complaint: abdominal pain, n/v, diarrhea Travel History International Travel<30 Days: No Contact w/Intl Traveler <30 Da: No Traveled to Known Affected Are: No History of Present Illness This a pleasant 55-year-old white female with significant past medical history hypertension, gallstones, asthma, acid reflux. Patient indicates that she was recently in the emergency room on September 17 with abdominal pain and was diagnosed with diverticulitis and discharged on Cipro and Flagyl. Patient states that she has been trying to stay on a full liquid diet and had been doing relatively well. Yesterday she ate a couple of bites of bagel and cream cheese and immediately after that she had onset of new abdominal pain that was localized to the mid epigastric area and right upper quadrant. Patient indicates she's had this pain in the past although it was less severe and usually controlled taking Tums. She has been told that she has sludge in her gallbladder. Indicates that she had a colonoscopy 5 years ago that was unremarkable. No prior history of upper endoscopy. She denies any prior episodes of diverticulitis oriented and is most recent one. She reports having some nausea but no vomiting, has noted stools becoming more loose, no fevers, has had chills. States she had approximately 15 episodes of loose stools on and now they have been tapering off. Denies any blood in the stools. No hematemesis. She denies any urinary symptoms. Patient does report increase reflux. In the emergency room, patient was evaluated and laboratory workup was completed. CBC was essentially unremarkable, WBC 8.6, hemoglobin 13.4 and hematocrit 38.8. BMP remarkable for dehydration, BUN 25, creatinine 1.19. Lactic acid 1.4. Lipase today. C-reactive protein 0.41. During evaluation, patient was noted with a low blood pressure 85/52. Sepsis workup was started. She received IV fluid challenge as well as started on Azactam, Flagyl and vancomycin IV. Cultures were obtained. A CT of the abdomen was completed that showed improved inflammatory changes adjacent to the sigmoid colon, appendix unremarkable. A few tiny stones in the gallbladder. No biliary obstruction. No other new significant changes compared to the prior study. Patient is now evaluated in her room. HIDA scan has been completed and results are pending. She is tolerating clear liquid diet well. Has not had any other episodes of nausea vomiting. Indicates that stools are becoming more formed. Patient is admitted for further evaluation and treatment Review of Systems Constitutional: COMPLAINS OF: Chills, DENIES: Diaphoretic episodes, Fatigue, Fever, Weight gain, Weight loss, Dizziness, Change in appetite, Night Sweats Endocrine: DENIES: Abnorml menstrual pattern, Heat/cold intolerance, Polydipsia , Polyuria, Polyphagia Eyes: DENIES: Blurred vision, Diplopia, Eye inflammation, Eye pain, Vision loss , Photosensitivity, Double Vision Ears, nose, mouth, throat: DENIES: Tinnitus, Hearing loss, Vertigo, Nasal discharge, Oral lesions, Throat pain, Hoarseness, Ear Pain, Running Nose, Epistaxis, Sinus Pain, Toothache, Odynophagia Respiratory: DENIES: Apneas, Cough, Snoring, Wheezing, Hemoptysis, Sputum production, Shortness of breath Cardiovascular: DENIES: Chest pain, Palpitations, Syncope, Dyspnea on Exertion , PND, Lower Extremity Edema, Orthopnea, Claudication Gastrointestinal: COMPLAINS OF: Abdominal pain, Diarrhea, Nausea, Vomiting, DENIES: Black stools, Bloody stools, Constipation, Difficulty Swallowing, Anorexia Genitourinary: DENIES: Abnormal vaginal bleeding, Dysmenorrhea, Dyspareunia, Sexual dysfunction, Urinary frequency, Urinary incontinence, Urgency, Hematuria , Dysuria, Nocturia, Vaginal discharge Musculoskeletal: DENIES: Joint pain, Muscle aches, Stiffness, Joint Swelling, Back pain, Neck pain Integumentary: DENIES: Abnormal pigmentation, Pruritus, Rash, Nail changes, Breast masses, Breast skin changes, Nipple discharge Hematologic/lymphatic: DENIES: Bruising, Lymphadenopathy Immunologic/allergic: DENIES: Eczema, Urticaria Neurologic: DENIES: Abnormal gait, Headache, Localized weakness, Paresthesias, Seizures, Speech Problems, Tremor, Poor Balance Psychiatric: DENIES: Anxiety, Confusion, Mood changes, Depression, Hallucinations, Agitation, Suicidal Ideation, Homicidal Ideation, Delusions Past Family Social History Past Medical History Hypothyroid Hypertension Gallstones Diverticulitis Asthma Heartburn Past Surgical History Hysterectomy Colonoscopy 5 years ago that was normal Right calcaneus surgery Reported Medications Reported Meds & Active Scripts Active Flagyl (Metronidazole) 500 Mg Tab 500 Mg PO QID 10 Days Cipro (Ciprofloxacin HCl) 500 Mg Tab 500 Mg PO BID 10 Days Reported Omeprazole 20 Mg Tab 20 Mg PO DAILY Proventil Hfa 6.7 GM Inh (Albuterol Sulfate) 90 Mcg/Act Aer 1 Puff INH Q4H PRN Advair Diskus Inh (Fluticasone-Salmeterol Inh) 100-50 Mcg/Blist Aer 1 Puff INH BID Rinse mouth after use. [phenterimine] Vitamin D (Cholecalciferol) 400 Unit/Ml Drops 400 Units PO DAILY Levothyroxine (Levothyroxine Sodium) 75 Mcg Tab 75 Mcg PO DAILY Lisinopril-Hctz 20-12.5 Mg Tab 1 Tab PO DAILY Allergies: Coded Allergies: Egg Allergy (Verified Allergy, Severe, Anaphylaxis, 09/25/16) Shellfish (Verified Allergy, Severe, Anaphylaxis, 09/25/16) Penicillin (Verified Allergy, Unknown, Anaphylaxis, 09/25/16) Active Ordered Medications Inpatient Medications Acetaminophen (Tylenol) 650 mg Q4H PRN PO TEMP > 100.4; Start 09/25/16 at 03:30 Aztreonam 2000 mg/ Sodium Chloride 100 ml @ 200 mls/hr ONCE STAT IV Last administered on 09/25/16 03:48; Start 09/25/16 at 01:48; Stop 09/25/16 at 02:17 ; Status DC Bisacodyl (Dulcolax Supp) 10 mg DAILY PRN RECTAL SEVERE CONSITIPATION; Start at 03:30 Budesonide/ Formoterol Fumarate (Symbicort 80-4.5 Mcg Inh) 2 puff BID INH ; Start 09/25/16 at 09:00 Ciprofloxacin (Cipro) 500 mg BID PO ; Start 09/25/16 at 09:00; Stop 09/25/16 at 10:15; Status DC Lactulose (Lactulose Liq) 30 ml DAILY PRN PO SEVERE CONSITIPATION; Start at 03:30 Levofloxacin/ Dextrose 150 ml @ 100 mls/hr Q24H IV Last administered on 14:37; Start 09/25/16 at 11:00 Levothyroxine Sodium (Synthroid) 75 mcg DAILY@06 PO Last administered on 06:49; Start 09/25/16 at 06:00 Magnesium Hydroxide (Milk Of Magnlorri Liq) 30 ml Q12H PRN PO MILD - MODERATE CONSTIPATION; Start 09/25/16 at 03:30 Metronidazole (Flagyl 500 Mg Inj) 100 ml @ 100 mls/hr Q8H IV Last administered on 09/25/16 14:38; Start 09/25/16 at 11:00 Metronidazole (Flagyl) 500 mg QID PO ; Start 09/25/16 at 09:00; Stop 09/25/16 at 10:15; Status DC Morphine Sulfate (Morphine Inj) 2 mg Q3H PRN IV PUSH PAIN SCALE 4-10; Start at 11:00 Naloxone HCl (Narcan Inj) 0.4 mg UNSCH PRN IV SEE LABEL COMMENTS; Start at 03:30 Ondansetron HCl (Zofran Inj) 4 mg Q6H PRN IVP NAUSEA OR VOMITING; Start at 03:30 Pantoprazole Sodium 20 mg 20 mg DAILY PO Last administered on 09/25/16 14:37; Start 09/25/16 at 09:00 Senna/Docusate Sodium (Michela-Colace) 1 tab BID PO ; Start 09/25/16 at 09:00 Sennosides (Senokot) 17.2 mg Q12H PRN PO MODERATE - SEVERE CONSTIPATION; Start 09/25/16 at 03:30 Sodium Chloride (NS 1000 ml Inj) 1,000 ml @ 100 mls/hr Q10H IV Last administered on 09/25/16 14:38; Start 09/25/16 at 03:29 Sodium Chloride (NS Flush) 2 ml BID IV FLUSH Last administered on 09/25/16 14: 37; Start 09/25/16 at 09:00 Vancomycin HCl 1000 mg/Sodium Chloride 250 ml @ 250 mls/hr ONCE STAT IV Last administered on 09/25/16 03:44; Start 09/25/16 at 01:48; Stop 09/25/16 at 02:47 ; Status DC Family History Reviewed, noncontributory Social History Patient is , has 4 grown children. Drinks a glass of wine in the evenings No tobacco abuse, no substance abuse. 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 Physical Exam Vital Signs Vital Signs Date Time Temp Pulse Resp B/P Pulse Ox O2 Delivery O2 Flow Rate FiO2 7/17/17 11:56 97.9 70 15 99/54 100 09/25/16 07:24 79 15 95/51 99 Room Air 09/25/16 06:00 68 16 91/53 97 Room Air 09/25/16 05:00 64 16 107/58 98 Room Air 09/25/16 04:00 66 16 97/54 97 Room Air 09/25/16 03:00 84 16 95/53 100 Room Air 09/25/16 02:00 83 16 92/61 100 Room Air 09/25/16 01:40 87 16 85/52 96 Room Air 09/25/16 01:14 97.8 90 16 119/64 98 Room Air Physical Exam GENERAL: This is a well-nourished, well-developed patient, in no apparent distress. SKIN: No rashes, ecchymoses or lesions. Cool and dry. HEAD: Atraumatic. Normocephalic. No temporal or scalp tenderness. EYES: Pupils equal round and reactive. Extraocular motions intact. No scleral icterus. No injection or drainage. ENT: Nose without bleeding, purulent drainage or septal hematoma. Throat without erythema, tonsillar hypertrophy or exudate. Uvula midline. Airway patent. NECK: Trachea midline. No JVD or lymphadenopathy. Supple, nontender, no meningeal signs. CARDIOVASCULAR: Regular rate and rhythm without murmurs, gallops, or rubs. RESPIRATORY: Clear to auscultation. Breath sounds equal bilaterally. No wheezes , rales, or rhonchi. GASTROINTESTINAL: Abdomen soft, tender over epigastric area and right upper quadrant, nondistended. No hepato-splenomegaly, or palpable masses. No guarding. MUSCULOSKELETAL: Extremities without clubbing, cyanosis, or edema. No joint tenderness, effusion, or edema noted. No calf tenderness. Negative Homans sign bilaterally. NEUROLOGICAL: Awake and alert. Cranial nerves II through XII intact. Motor and sensory grossly within normal limits. Five out of 5 muscle strength in all muscle groups. Normal speech. Laboratory Laboratory Tests Test 09/25/16 09/25/16 09/25/16 09/25/16 01:44 01:45 01:48 07:10 Urine Color YELLOW Urine Turbidity CLEAR Urine pH 5.0 Urine Specific [place] 1.014 Urine Protein NEG Urine Glucose (UA) NEG Urine Ketones NEG Urine Occult Blood NEG Urine Nitrite NEG Urine Bilirubin NEG Urine Urobilinogen LESS THAN 2.0 Urine Leukocyte Esterase TRACE Urine RBC LESS THAN 1 Urine WBC LESS THAN 1 Urine Squamous Epithelial <1 Cells Urine Hyaline Casts 1 Microscopic Urinalysis Comment CULT NOT INDICATED White Blood Count 8.6 Red Blood Count 4.32 Hemoglobin 13.4 Hematocrit 38.8 Mean Corpuscular Volume 89.8 Mean Corpuscular Hemoglobin 31.1 Mean Corpuscular Hemoglobin 34.6 Concent Red Cell Distribution Width 12.8 Platelet Count 401 Mean Platelet Volume 5.7 Neutrophils (%) (Auto) 22.7 Lymphocytes (%) (Auto) 18.7 Monocytes (%) (Auto) 47.1 Eosinophils (%) (Auto) 10.8 Basophils (%) (Auto) 0.7 Neutrophils # (Auto) 2.0 Lymphocytes # (Auto) 1.6 Monocytes # (Auto) 4.0 Eosinophils # (Auto) 0.9 Basophils # (Auto) 0.1 CBC Comment AUTO DIFF Differential Comment AUTO DIFF CONFIRMED Sodium Level 136 Potassium Level 4.3 Chloride Level 104 Carbon Dioxide Level 24.4 Anion Gap 8 Blood Urea Nitrogen 25 Creatinine 1.19 Estimat Glomerular Filtration 47 Rate Random Glucose 106 Calcium Level 9.1 Total Bilirubin 0.1 Aspartate Amino Transf 11 (AST/SGOT) Alanine Aminotransferase 21 (ALT/SGPT) Alkaline Phosphatase 75 C-Reactive Protein 0.41 Total Protein 7.4 Albumin 3.7 Lipase 208 Lactic Acid Level 1.4 Stool C. difficile Toxin (PCR) NEGATIVE Stl C. difficile Toxin PRESUMPTIVE Epiderm 027 NEGATIVE Date/Time Procedure Status Source Growth 09/25/16 07:10 Stool Pus (KAREY) Received Stool Stool Pending 09/25/16 07:10 Received Stool Stool Pending 09/25/16 01:55 Aerobic Blood Culture Received Blood Peripheral Pending 09/25/16 01:55 Anaerobic Blood Culture Received Blood Peripheral Pending Result Diagram: 09/25/16 0145 09/25/16 014 Imaging Last Impressions Chest X-Ray 09/25/16 0148 Signed Impressions: Service Date/Time: Sunday, September 25, 2016 02:01 - CONCLUSION: No acute disease. Emmanuel Valiente MD Hepatobiliary Scan Nuclear Medicine 09/25/16 0000 Signed Impressions: Service Date/Time: Sunday, September 25, 2016 12:23 - CONCLUSION: Normal examination. No evidence of biliary tree obstruction or acute cholecystitis. Scott Gamble MD Abdomen/Pelvis CT 09/25/16 0000 Signed Impressions: Service Date/Time: Sunday, September 25, 2016 02:36 - CONCLUSION: 1. The previously noted inflammatory changes adjacent to the sigmoid colon on the prior study has resolved. 2. The appendix is unremarkable. 3. A few tiny stones in the gallbladder. No biliary tract obstruction. 4. No other new or significant changes compared to the prior study. Emmanuel Valiente MD Assessment and Plan Problem List: (1) Abdominal pain (2) Dehydration (3) Hypotension (4) Diverticulitis (5) Diarrhea (6) Hypothyroid (7) Asthma Assessment and Plan Admit to Dr. Almanzar. 55-year-old white female presented to emergency room with epigastric and right upper quadrant pain associated with nausea, vomiting and diarrhea. Recently diagnosed with diverticulitis on Cipro and Flagyl. CT of the abdomen show improvement in diverticulitis, no other acute findings. No biliary obstruction. Has history of sludge in gallbladder. Abdominal pain, etiology unclear, rule out acute cholecystitis Dehydration secondary to nausea vomiting diarrhea -HIDA scan has been completed, we'll follow up on results Gastroenterology has been consulted, we will follow up on the recommendations -Continue with clear liquid diet -Antiemetics when necessary -Anti-with morphine for pain management -Continue with IV fluids, replace electrolytes as needed -Continue Levaquin and Flagyl, follow cultures Stools for C. difficile have been completed, they are negative. Hypotension, no evidence of sepsis. History hypertension -Continue with IV fluids, blood pressure is improving Hold off on restarting home medications Hypothyroid Continue home medications Heartburn, history of GERD. Endorses increased symptoms of heartburn. Protonix 20 mg by mouth daily -GI has been consulted History of asthma, stable Continue with Symbicort Home medications reviewed, initiated as indicated Continue Protonix for GI prophylaxis SCDs for DVT prophylaxis Plan of care has been discussed with patient, attending and registered nurse. Further management of the patient will be dependent on the hospital course This patient was seen by myself and Dr. Almanzar, this H&P is written on his behalf Problem Qualifiers (1) Abdominal pain: Qualified Code: R10.11 - Right upper quadrant abdominal pain (2) Hypotension: Qualified Code: I95.9 - Hypotension, unspecified hypotension type (3) Diverticulitis: Qualified Code: K57.20 - Diverticulitis of large intestine with perforation without abscess or bleeding (4) Diarrhea: Qualified Code: R19.7 - Diarrhea, unspecified type (5) Hypothyroid: Qualified Code: E03.9 - Hypothyroidism, unspecified type (6) Asthma: Qualified Code: J45.909 - Uncomplicated asthma, unspecified asthma severity Judie Juares. [facility] Sep 25, 2016 14:50
[2016-09-25] MEDS ORDERED: CALCIUM CARBONATE 500 MG CHEWABLE TAB CHEW PRN (17:00)
--- NOTE | 2016-09-25 19:24 | EKG ---
Date Performed: 09/25/2016 Time Performed: 01:50:50 PTAGE: 55 years EKG: Sinus rhythm NORMAL ECG NO PREVIOUS TRACING DOCTOR: Lui He Interpretating Date/Time 09/25/2016 19:23:01
[2016-09-26] MEDS: metroNIDAZOLE 500 MG INJ 100 ML IV SCH ×2 (03:00→11:16)
[2016-09-26 04:21] VITALS: BP 101/55; PULSE 68; RESP 17; TEMP 98.6; O2SAT 96
[2016-09-26 05:47] LABS: AUTOMATED NEUTROPHIL # 1.4 TH/MM3 (1.8-7.7); BASOPHIL % 0.8 % (0.0-2.0); EOSINOPHIL # 0.8 TH/MM3 (0-0.4); EOSINOPHIL % 16.7 % (0.0-4.0); HEMATOCRIT 32.5 % (35.0-46.0); HEMO FLAGS DIFF FINAL; LYMPH % 23.8 % (9.0-44.0); LYMPHOCYTE # 1.2 TH/MM3 (1.0-4.8); MEAN CELL VOLUME 91.4 FL (80.0-100.0); MONO % 29.1 % (0.0-8.0); NEUT % 29.6 % (16.0-70.0); PLATELET COUNT 324 TH/MM3 (150-450); RED BLOOD COUNT 3.56 MIL/MM3 (4.00-5.30); RED CELL DISTRIBUTION WIDTH 13.1 % (11.6-17.2); WHITE BLOOD COUNT 4.8 TH/MM3 (4.0-11.0)
[2016-09-26] MEDS: LEVOTHYROXINE SODIUM 75 MCG TAB PO SCH (06:05)
[2016-09-26 06:19] LABS: BICARBONATE 24.2 MEQ/L (21.0-32.0); MAGNESIUM 1.9 MG/DL (1.5-2.5)
--- NOTE | 2016-09-26 06:43 | MB ---
cc: REDD HAMMOND M.D. DATE OF CONSULTATION 09/25/[address] Almanzar REASON FOR CONSULTATION Abdominal pain in the right upper quadrant, regurgitation, nausea and vomiting. HISTORY Ms. Tenorio is a very pleasant 55-year-old lady who came to the emergency room with complaints of not feeling well for the last few weeks. She complains of mostly pain in the epigastrium, right upper quadrant with regurgitation going on for a long time getting worse recently. She was admitted for diverticulitis recently. She was placed on antibiotics. Recently, she also had constipation and severe diarrhea. No weight loss. No melena, hematemesis or hematochezia. She had a colonoscopy five years ago which reportedly was normal endoscopy was done years ago which according to her was normal. She had a CT which showed gallstones. A HIDA scan was negative for biliary dyskinesia. PAST MEDICAL HISTORY She has a history of: 1. Gallstones 2. Hypertension 3. Diverticulitis 4. Hypothyroidism 5. Acid reflux 6. Asthma PAST SURGICAL HISTORY Hysterectomy SOCIAL HISTORY Occasionally uses alcohol. Denies any smoking or drug use. ALLERGIES EGG, SHELLFISH AND PENICILLIN. MEDICATIONS 1. Flagyl 2. Cipro 3. Proventil 4. Advair 5. Vitamin D 6. Levothyroxine 7. Lisinopril FAMILY HISTORY No family history of colon cancer or any other GI pathology. REVIEW OF SYSTEMS On review of systems, she denies any fever or chills, weight loss or weight gain. ENT: No alteration in baseline hearing or visual acuity PULMONARY: Denies any chest pain, shortness of breath. GASTROINTESTINAL: As above. GENITOURINARY: Denies dysuria or hematuria. HEMATOLOGICAL: No history of anemia or bleeding disorder. SKIN: No alteration in baseline skin lesion. NEUROLOGIC: No history of TIA or CVA kind of symptoms. PHYSICAL EXAM On clinical exam, she is sitting comfortably in bed in no acute distress. VITAL SIGNS: Temperature 98.1, blood pressure 104/58, saturation 100. HEAD, EYES, EARS, NOSE, AND THROAT: PERRLA. NECK: No JVD. No lymphadenopathy. CHEST: Clear to the auscultation and palpation. CARDIOVASCULAR: Sinus, no murmur. ABDOMEN: Soft and nontender. Bowel sounds are present. [employer] OFFICER: Awake, alert, and oriented x3. No focal signs identified. LABORATORY DATA Her hemoglobin is 13.4, white count 8.6, platelets 401. Her chemistry is suggestive of a BUN of 25, creatinine 1.1. Liver enzymes normal. Abdominal CT showed gallstones, previous inflammatory changes in the sigmoid colon have resolved. A few tiny stones in the gallbladder. A HIDA scan was done that was suggestive of normal examination. IMPRESSION Ms. Tenorio is a very pleasant 55-year-old lady with abdominal pain, history of gallstones, concern for cholecystitis. HIDA scan was negative, possible biliary colic. Abdominal pain, increased reflux, regurgitation, possible severe reflux, peptic ulcer disease, recurrent diverticulitis. RECOMMENDATIONS Advance diet as tolerated. Upper endoscopy in the morning. Continue the course of antibiotics. If discharged, followup in the office. May need a colonoscopy in 6-8 weeks. Also recommend general surgery consultation as an outpatient in case her symptoms are related to biliary colic. I would like to thank Dr. Almanzar for referring her to our office for consultation. Risks and benefits were discussed with the patient and she is agreeing with it. Thank you again. We will continue to follow the patient along with you. MD CATINA Hatch/PEDRO /7:10 PM /6:37 AM
[2016-09-26 08:06] VITALS: BP 105/58; PULSE 70; RESP 18; TEMP 97.1; O2SAT 99
--- NOTE | 2016-09-26 08:35 | HHI.PR ---
Subjective Remarks sleeping, awakes to voice RUQ sore no more diarrhea, stopped last night, had 6 episodes no fever no n/v NPO for EGD today overall feels better Objective Objective Results - Vital Signs Date Time Temp Pulse Resp B/P Pulse Ox O2 Delivery O2 Flow Rate FiO2 09/26/16 08:06 97.1 70 18 105/58 99 09/26/16 04:21 98.6 68 17 101/55 96 09/25/16 20:08 97.8 77 18 106/63 100 09/25/16 15:35 98.1 81 16 104/58 100 09/25/16 11:56 97.9 70 15 99/54 100 I/O 09/25/16 09/25/16 09/25/16 09/26/16 09/26/16 09/26/16 07:00 15:00 23:00 07:00 15:00 23:00 # Voids 1 1 # Bowel Movements 3 3 Result Diagram: 09/26/16 0450 09/26/16 0450 Imaging Last Impressions Chest X-Ray 09/25/16 0148 Signed Impressions: Service Date/Time: Sunday, September 25, 2016 02:01 - CONCLUSION: No acute disease. Emmanuel Valiente MD Hepatobiliary Scan Nuclear Medicine 09/25/16 0000 Signed Impressions: Service Date/Time: Sunday, September 25, 2016 12:23 - CONCLUSION: Normal examination. No evidence of biliary tree obstruction or acute cholecystitis. Scott Gamble MD Abdomen/Pelvis CT 09/25/16 0000 Signed Impressions: Service Date/Time: Sunday, September 25, 2016 02:36 - CONCLUSION: 1. The previously noted inflammatory changes adjacent to the sigmoid colon on the prior study has resolved. 2. The appendix is unremarkable. 3. A few tiny stones in the gallbladder. No biliary tract obstruction. 4. No other new or significant changes compared to the prior study. Emmanuel Valiente MD Other Results Laboratory Tests Test 09/26/16 04:50 White Blood Count 4.8 Red Blood Count 3.56 Hemoglobin 11.0 Hematocrit 32.5 Mean Corpuscular Volume 91.4 Mean Corpuscular Hemoglobin 31.0 Mean Corpuscular Hemoglobin 34.0 Concent Red Cell Distribution Width 13.1 Platelet Count 324 Mean Platelet Volume 6.1 Neutrophils (%) (Auto) 29.6 Lymphocytes (%) (Auto) 23.8 Monocytes (%) (Auto) 29.1 Eosinophils (%) (Auto) 16.7 Basophils (%) (Auto) 0.8 Neutrophils # (Auto) 1.4 Lymphocytes # (Auto) 1.2 Monocytes # (Auto) 1.4 Eosinophils # (Auto) 0.8 Basophils # (Auto) 0.0 CBC Comment DIFF FINAL Differential Comment Sodium Level 143 Potassium Level 4.0 Chloride Level 112 Carbon Dioxide Level 24.2 Anion Gap 7 Blood Urea Nitrogen 6 Creatinine 0.77 Estimat Glomerular Filtration 78 Rate Random Glucose 92 Calcium Level 8.0 Magnesium Level 1.9 Date/Time Procedure Status Source Growth 09/25/16 07:10 Stool Pus (KAREY) - Final Complete Stool Stool RARE WBC 09/25/16 07:10 Received Stool Stool Pending 09/25/16 01:55 Aerobic Blood Culture Received Blood Peripheral Pending 09/25/16 01:55 Anaerobic Blood Culture Received Blood Peripheral Pending ROS General: No: Fatigue, Weakness HEENT: No: Sore Throat, Dysphagia Cardiac: No: Chest Pain, Edema, Palpitations Pulmonary: No: Cough, SOB, Wheezing GI: Abdominal Pain (improved ), Diarrhea (has stopped diarrhea ), N/V (improved ), No: BM /PIN INSERTER REGULATOR: No: Dysuria, Urgency Neuro/MS: No: Lightheaded, Confusion Psych: No: Anxiety, Depression Skin: No: Itching, Rash Physical Exam Physical Exam GENERAL: This is a well-nourished, well-developed patient, in no apparent distress. SKIN: No rashes, ecchymoses or lesions. Cool and dry. HEAD: Atraumatic. Normocephalic. No temporal or scalp tenderness. EYES: Pupils equal round and reactive. Extraocular motions intact. No scleral icterus. No injection or drainage. ENT: Nose without bleeding, purulent drainage or septal hematoma. Throat without erythema, tonsillar hypertrophy or exudate. Uvula midline. Airway patent. NECK: Trachea midline. No JVD or lymphadenopathy. Supple, nontender, no meningeal signs. CARDIOVASCULAR: Regular rate and rhythm without murmurs, gallops, or rubs. RESPIRATORY: Clear to auscultation. Breath sounds equal bilaterally. No wheezes , rales, or rhonchi. GASTROINTESTINAL: Abdomen soft, tender over epigastric area and right upper quadrant, nondistended. No hepato-splenomegaly, or palpable masses. No guarding. MUSCULOSKELETAL: Extremities without clubbing, cyanosis, or edema. No joint tenderness, effusion, or edema noted. No calf tenderness. Negative Homans sign bilaterally. NEUROLOGICAL: Awake and alert. Cranial nerves II through XII intact. Motor and sensory grossly within normal limits. Five out of 5 muscle strength in all muscle groups. Normal speech. Urinary Catheter: No A/P Diagnosis: (1) Abdominal pain (2) Dehydration (3) Hypotension (4) Diverticulitis (5) Diarrhea (6) Hypothyroid (7) Asthma Assessment and Plan 55-year-old white female presented to emergency room with epigastric and right upper quadrant pain associated with nausea, vomiting and diarrhea. Recently diagnosed with diverticulitis on Cipro and Flagyl. CT of the abdomen show improvement in diverticulitis, no other acute findings. No biliary obstruction. Has history of sludge in gallbladder. Abdominal pain, etiology unclear, rule out acute cholecystitis Dehydration secondary to nausea vomiting diarrhea -HIDA scan, no biliary obstruction, no evidence of acute cholecystitis. Gastroenterology input appreciated, EGD recommended. Poss biliary colic, if symptoms persists, can f/u with gen surg as OP -Antiemetics when necessary -continue with morphine for pain management -Continue with IV fluids, replace electrolytes as needed -Continue Levaquin and Flagyl, cultures negative Stools for C. difficile have been completed, they are negative. -f/u results of EGD, poss dc today. Diarrhea has stopped, no more n/v Hypotension, no evidence of sepsis. History hypertension -Continue with IV fluids, blood pressure is improving Hold off on restarting home medications Hypothyroid Continue home medications Heartburn, history of GERD. Endorses increased symptoms of heartburn. Protonix inc. to 40 mg po daily -TUMS prn -for EGD today History of asthma, stable Continue with Symbicort Continue Protonix for GI prophylaxis SCDs for DVT prophylaxis Poss dc today after EGD and if able to tolerate diet D/W RN D/W Dr. Almanzar D/W pt This patient was seen by myself and Dr. Almanzar, this note is written on his behalf Problem Qualifiers (1) Abdominal pain: Qualified Code: R10.11 - Right upper quadrant abdominal pain (2) Hypotension: Qualified Code: I95.9 - Hypotension, unspecified hypotension type (3) Diverticulitis: Qualified Code: K57.20 - Diverticulitis of large intestine with perforation without abscess or bleeding (4) Diarrhea: Qualified Code: R19.7 - Diarrhea, unspecified type (5) Hypothyroid: Qualified Code: E03.9 - Hypothyroidism, unspecified type (6) Asthma: Qualified Code: J45.909 - Uncomplicated asthma, unspecified asthma severity Judie Juares [facility] Sep 26, 2016 08:35
[2016-09-26] MEDS: DOCUSATE SODIUM 50 MG/SENNA 8.6 MG TAB PO SCH (08:48)
[2016-09-26] MEDS: BUDESONIDE-FORMOTEROL 80/4.5 MCG INHALER INH SCH (08:48)
[2016-09-26] MEDS: SODIUM CHLORIDE 0.9% FLUSH 10 ML FLUSH IV FLUSH SCH (08:49)
[2016-09-26] MEDS: SODIUM CHLOR 0.9% 1000 ML INJ 1,000 ML IV SCH (08:51)
[2016-09-26] MEDS ORDERED: PANTOPRAZOLE SOD 40 MG DELAYED RELEASE TAB PO SCH (09:00)
[2016-09-26] MEDS: LEVOFLOXACIN 750 MG PREMIX INJ 150 ML IV SCH (11:16)
[2016-09-26 12:06] VITALS: BP 140/87; PULSE 83; RESP 18; TEMP 98; O2SAT 99
[2016-09-26] MEDS ORDERED: PROPOFOL 200 MG/20 ML AMP IV ONE (13:39)
--- NOTE | 2016-09-26 13:47 | GIPROC ---
[facility] [address] [facility]. [facility], [address] EGD PROCEDURE REPORT EXAM DATE: 09/26/2016 PATIENT NAME: Mirlande Tenorio MR #: [id number] BIRTHDATE: 1960 ATTENDING: Yesenia Han MD ORDER #: [id number] LOCKSTITCH HEMMER: Caterina Vallejo and Mickie Castro STATUS: inpatient INDICATIONS: The patient is a 55 yr old female here for an EGD due to abdominal pain PROCEDURE PERFORMED: EGD w/ biopsy MEDICATIONS: None and Per Anesthesia. TOPICAL ANESTHETIC: none CONSENT: The patient understands the risks and benefits of the procedure and understands that these risks include, but are not limited to: sedation, allergic reaction, infection, perforation and/or bleeding. Alternative means of evaluation and treatment include, among others: physical exam, x-rays, and/or surgical intervention. The patient elects to proceed with this endoscopic procedure. medical equipment was checked for proper function. Hand hygiene and appropriate measures for infection prevention was taken. After the risks, benefits and alternatives of the procedure were thoroughly explained, Informed consent was verified, confirmed and timeout was successfully executed by the treatment team. The patient was anesthetized with topical anesthesia and the Pentax [id number] endoscope was introduced through the mouth and advanced to the second portion of the duodenum. Retroflexed views revealed a hiatal hernia The gastroscope was then slowly withdrawn and removed. Duodenum second portion normal-biopsy gastritis antrum-biopsy esophagitis diostal esophagus-biopsy duodenitis duodenal bulb-biopsy. ADVERSE EVENTS: There were no complications. IMPRESSIONS: 1. Duodenum second portion normal-biopsy gastritis antrum-biopsy esophagitis diostal esophagus-biopsy duodenitis duodenal bulb-biopsy 2. Retroflexed views revealed a hiatal hernia RECOMMENDATIONS: 1. Anti-reflux regimen 2. Continue PPI 3. Avoid NSAIDS 4. Ok to dc home form gi point colon 6-8 weeks general surgery consult op PATIENT CONDITION: stable DISPOSITION: Inpatient REPEAT EXAM: EGD pending biopsy results Yesenia Han MD eSigned: Yesenia Han MD 09/26/2016 1:47 PM cc: PATIENT NAME: Mirlande Tenorio MR#: [id number]
[2016-09-26] MEDS ORDERED: PANT40TA3 PO (15:26)
--- NOTE | 2016-09-26 15:27 | HHI.DCPOC ---
Discharge Care Plan Diagnosis: (1) Abdominal pain (2) Hypotension (3) Hypothyroid (4) Asthma (5) Diverticulitis Your Health Problems Are: Difficulty with ADL Appetite Changes Goals to Promote Your Health * To prevent worsening of your condition and complications * To maintain your health at the optimal level Directions to Meet Your Goals Take your medications as prescribed Follow your dietary instruction Follow activity as directed Keep your appointments as scheduled Take your immunizations and boosters as scheduled If your symptoms worsen call your PCP, if no PCP go to Urgent Care Center or Emergency Room Smoking is Dangerous to Your Health. Avoid second hand smoke Call the 24-hour hour crisis hotline for domestic abuse at Judie Juares. [facility] Sep 26, 2016 15:27
[2016-09-26 16:03] VITALS: BP 124/67; PULSE 66; RESP 18; TEMP 96.5; O2SAT 97
--- NOTE | 2016-09-26 16:09 | HHI.DS ---
Discharge Summary Admission Date Sep 25, 2016 at 03:28 Discharge Date: Sep 26, 2016 Admitting Diagnosis Dehydration, diarrhea, hypotension (1) Abdominal pain (2) Dehydration (3) Hypotension (4) Diverticulitis (5) Diarrhea (6) Hypothyroid (7) Asthma CBC/BMP: 09/26/16 0450 09/26/16 0450 Significant Findings Laboratory Tests Test 09/25/16 09/25/16 09/26/16 01:44 01:45 04:50 Urine Leukocyte Esterase TRACE (NEG) Mean Platelet Volume 5.7 FL 6.1 FL (7.0-11.0) (7.0-11.0) Monocytes (%) (Auto) 47.1 % 29.1 % (0.0-8.0) (0.0-8.0) Eosinophils (%) (Auto) 10.8 % 16.7 % (0.0-4.0) (0.0-4.0) Monocytes # (Auto) 4.0 TH/MM3 1.4 TH/MM3 (0-0.9) (0-0.9) Eosinophils # (Auto) 0.9 TH/MM3 0.8 TH/MM3 (0-0.4) (0-0.4) Blood Urea Nitrogen 25 MG/DL (7-18) 6 MG/DL (7-18) Creatinine 1.19 MG/DL (0.50-1.00) Estimat Glomerular Filtration 47 ML/MIN (>89) 78 ML/MIN (>89) Rate Total Bilirubin 0.1 MG/DL (0.2-1.0) Aspartate Amino Transf 11 U/L (15-37) (AST/SGOT) C-Reactive Protein 0.41 MG/DL (0.00-0.30) Red Blood Count 3.56 MIL/MM3 (4.00-5.30) Hemoglobin 11.0 GM/DL (11.6-15.3) Hematocrit 32.5 % (35.0-46.0) Neutrophils # (Auto) 1.4 TH/MM3 (1.8-7.7) Chloride Level 112 MEQ/L (98-107) Calcium Level 8.0 MG/DL (8.5-10.1) Imaging Last Impressions Chest X-Ray 09/25/16 0148 Signed Impressions: Service Date/Time: Sunday, September 25, 2016 02:01 - CONCLUSION: No acute disease. Emmanuel Valiente MD Hepatobiliary Scan Nuclear Medicine 09/25/16 0000 Signed Impressions: Service Date/Time: Sunday, September 25, 2016 12:23 - CONCLUSION: Normal examination. No evidence of biliary tree obstruction or acute cholecystitis. Scott Gamble MD Abdomen/Pelvis CT 09/25/16 0000 Signed Impressions: Service Date/Time: Sunday, September 25, 2016 02:36 - CONCLUSION: 1. The previously noted inflammatory changes adjacent to the sigmoid colon on the prior study has resolved. 2. The appendix is unremarkable. 3. A few tiny stones in the gallbladder. No biliary tract obstruction. 4. No other new or significant changes compared to the prior study. Emmanuel Valiente MD Hospital Course This a pleasant 55-year-old white female with significant past medical history hypertension, gallstones, asthma, acid reflux. Patient indicated that she was recently in the emergency room on September 17 with abdominal pain and was diagnosed with diverticulitis and discharged on Cipro and Flagyl. Patient stated that she has been trying to stay on a full liquid diet and had been doing relatively well. Yesterday she ate a couple of bites of bagel and cream cheese and immediately after that, she had onset of new abdominal pain that was localized to the mid epigastric area and right upper quadrant. Patient indicated she's had this pain in the past although it was less severe and usually controlled taking Tums. She has been told that she has sludge in her gallbladder. Indicated that she had a colonoscopy 5 years ago that was unremarkable. No prior history of upper endoscopy. She denied any prior episodes of diverticulitis oriented and is most recent one. She reports having some nausea but no vomiting, has noted stools becoming more loose, no fevers, has had chills. States she had approximately 15 episodes of loose stools on and now they have been tapering off. Denied any blood in the stools. No hematemesis. She denied any urinary symptoms. Patient did report increase reflux. In the emergency room, patient was evaluated and laboratory workup was completed. CBC was essentially unremarkable, WBC 8.6, hemoglobin 13.4 and hematocrit 38.8. BMP remarkable for dehydration, BUN 25, creatinine 1.19. Lactic acid 1.4. Lipase today. C-reactive protein 0.41. During evaluation, patient was noted with a low blood pressure 85/52. Sepsis workup was started. She received IV fluid challenge as well as started on Azactam, Flagyl and vancomycin IV. Cultures were obtained. A CT of the abdomen was completed that showed improved inflammatory changes adjacent to the sigmoid colon, appendix unremarkable. A few tiny stones in the gallbladder. No biliary obstruction. No other new significant changes compared to the prior study. She was evaluatd , was tolerating clear liquid diet well. Had not had any other episodes of nausea vomiting. Indicated that stools are becoming more formed. Patient was admitted for further evaluation and treatment (1) Abdominal pain (2) Dehydration (3) Hypotension (4) Diverticulitis (5) Diarrhea (6) Hypothyroid (7) Asthma During the course of the hospitalization, the following took place: 55-year-old white female presented to emergency room with epigastric and right upper quadrant pain associated with nausea, vomiting and diarrhea. Recently diagnosed with diverticulitis on Cipro and Flagyl. CT of the abdomen show improvement in diverticulitis, no other acute findings. No biliary obstruction. Has history of sludge in gallbladder. Abdominal pain, etiology unclear, rule out acute cholecystitis Dehydration secondary to nausea vomiting diarrhea -HIDA scan, no biliary obstruction, no evidence of acute cholecystitis. Gastroenterology input appreciated, EGD recommended. Poss biliary colic, if symptoms persists, can f/u with gen surg as OP -Antiemetics when necessary -continue with morphine for pain management -Continue with IV fluids, replace electrolytes as needed -Continue Levaquin and Flagyl, cultures negative Stools for C. difficile have been completed, they are negative. -Patient underwent upper endoscopy, findings of gastritis and esophagitis. Biopsies done to rule out celiac disease. Patient's diet was advanced, she tolerated well. She was cleared for discharge by GI. Hypotension, no evidence of sepsis. History hypertension Patient endorsed that she had been feeling poorly even prior to episode of diverticulitis. Indicates she has been loosing weight intentionally. Blood pressure remains low 100s, initially was 80 to 90s. She was instructed not to continue medications unless started trending upwards to 130 to 140s. -Initially put on IV fluids which were taper off. -Did not restart her blood pressure medications. Instructed to stop taking them on his blood pressure started trending up or stood 130 to 140s. Hypothyroid Continued home medications Heartburn, history of GERD. Endorses increased symptoms of heartburn. Protonix inc. to 40 mg po daily -TUMS prn -Instructed to continue Protonix History of asthma, stable Continue with Symbicort Continue Protonix for GI prophylaxis SCDs for DVT prophylaxis Patient tolerated upper endoscopy well, tolerated diet. She was stable for discharge. Patient was discharged home in stable condition. Discharge instructions given. She is to follow up as outpatient with Dr. Han She was instructed to follow up with general surgery for biliary colic as she may eventually need cholecystectomy Instructed to continue on a low-fat low-cholesterol diet Activity as tolerated She was instructed that it was okay to go back to work on 09/28 Pt Condition on Discharge: Stable Discharge Disposition: Discharge Home Discharge Instructions DIET: Follow Instructions for: Heart Healthy Diet Activities you can perform: Weight Bearing as Marsha Follow up Referrals: Gastroenterology with Yesenia Han MD PCP Follow-up Surgical New Medications: Pantoprazole (Pantoprazole) 40 Mg Tab 40 MG PO DAILY heartburn #30 Ref 0 TAB Continued Medications: Albuterol 6.7 GM Inh (Proventil Hfa 6.7 GM Inh) 90 Mcg/Act Aer 1 PUFF INH Q4H PRN SHORTNESS OF BREATH #1 Ref 0 INHALER Cholecalciferol (Vitamin D) 400 Unit/Ml Drops 400 UNITS PO DAILY #1 BOTTLE Fluticasone-Salmeterol Inh (Advair Diskus Inh) 100-50 Mcg/Blist Aer 1 PUFF INH BID Rinse mouth after use. Asthma Management #1 Ref 0 INHALER Levothyroxine (Levothyroxine) 75 Mcg Tab 75 MCG PO DAILY Thyroid #30 Ref 0 TAB Discontinued Medications: Ciprofloxacin (Cipro) 500 Mg Tab 500 MG PO BID Infection Days 10 Ref 0 TAB Lisinopril-Hctz (Lisinopril-Hctz) 20-12.5 Mg Tab 1 TAB PO DAILY Blood Pressure Management #30 Ref 0 TAB Metronidazole (Flagyl) 500 Mg Tab 500 MG PO QID Infection Days 10 Ref 0 TAB Omeprazole (Omeprazole) 20 Mg Tab 20 MG PO DAILY #30 Ref 0 TAB ([phenterimine]) Judie Juares Sep 26, 2016 16:09
== END 2016-09-26 18:31 | disposition home or self-care (01) ==
LOC: NEPE 01:03 → NEDA 03:28 → NEPFCDU 07:53
PROVIDERS: ADMIT Specialist; ATTEND Specialist
DX: R10.11 Right upper quadrant pain (principal); E86.0 Dehydration; R12 Heartburn; R19.7 Diarrhea, unspecified; I95.9 Hypotension, unspecified; E03.9 Hypothyroidism, unspecified; K21.9 Gastro-esophageal reflux disease without esophagitis; I10 Essential (primary) hypertension; K57.92 Diverticulitis of intestine, part unspecified, without perforation or abscess without bleeding; J45.909 Unspecified asthma, uncomplicated; K57.32 Diverticulitis of large intestine without perforation or abscess without bleeding; Z79.899 Other long term (current) drug therapy
CPT/HCPCS: 71010; 74177; 78227; 80048; 80053; 81001; 83605; 83690; 83735; 85025; 86140; 87040; 87205; 87493; 87506; 88305; 88312; 93005; 96365; 99285; A9537; G0378; J1956; J2805; J3370; J7030; J7050; Q9967

== ENCOUNTER → 2016-11-17 | Day surgery (SDC) | payer OTHER ==
[~2016-11-17] MED LIST changes: +ACETAMINOPHEN 1000 MG/100 ML 100 ML IV ONE; +ACETAMINOPHEN/HYDROcodone 325 MG/5 MG TAB ONE; +BUPIVACAINE/EPINEPHRINE 0.25% 50 ML VIAL ONE; -CIPR-9 PO; +LACTATED RINGER'S 1000 ML INJ 1,000 ML ONE; -LISI20TA PO; -METR-1 PO; +MIDAZOLAM HCL 2 MG/2 ML VIAL ONE; -OMEP20TA PO; +ONDANSETRON HCL 4 MG/2 ML VIAL IV PUSH ONE; +PANT40TA3 PO; +PROPOFOL 200 MG/20 ML AMP IV ONE; +SODIUM CHLOR 0.9% 250 ML INJ 250 ML IV ONE; -TOPI1CAP25 PO; +VANCOMYCIN HCL 1000 MG VIAL ONE; -[UNRECOGNIZED DRUG - OTHER]
--- NOTE | 2016-11-17 18:48 | MP ---
cc: BILLIE NIELSEN MD DATE OF SURGERY 11/17/16 PROCEDURE 1. Laparoscopic cholecystectomy. 2. Laparoscopic lysis of adhesions. PREOPERATIVE DIAGNOSIS Symptomatic cholelithiasis with biliary colic. POSTOPERATIVE DIAGNOSIS Symptomatic cholelithiasis with biliary colic with omental adhesions to the periumbilical region. ANESTHESIA General endotracheal SURGEON Jacinta Nielsen MD ESTIMATED BLOOD LOSS 5 mL FLUIDS 700 mL crystalloid COMPLICATIONS None. DRAINS None. SPECIMEN Gallbladder and stones to pathology. PROCEDURE IN DETAIL The patient was taken to the operating room and placed on the operating table in the supine position. After an adequate level of general endotracheal anesthesia was achieved, the abdomen was prepped and draped in the usual fashion. Time-out was taken confirming the correct patient, site and procedure to be performed. An incision was made in the umbilicus after injecting with local anesthetic. Dissection was carried down to the peritoneal cavity. Omental tissue was palpated and this was swept aside to allow for placement of the balloon trocar. The balloon trocar was inserted and the balloon inflated. The abdomen was insufflated. The patient was placed in reverse Trendelenburg position. Three 5 mm trocars were placed with the first to the right of the falciform ligament and second and third in the right subcostal region. All entered the abdominal cavity under direct vision uneventfully. The fundus of the gallbladder was then grasped and retracted upward. The cystic duct infundibular junction and cystic artery were both circumferentially dissected. The cystic artery was doubly clipped proximally, singly clipped on the gallbladder side and divided. The cystic duct was then doubly clipped distally, singly clipped on the gallbladder side and divided. Cholangiogram was not obtained as the common bile duct was easily seen on this patient and she had a normal bilirubin and alkaline phosphatase. The gallbladder was then dissected off of the liver bed with electro-dissection. The gallbladder was entered at one point and all bile was aspirated from the gallbladder. The gallbladder was then grasped with a grasping forcep and removed via the umbilical port and passed off the table. The upper abdomen was revisualized. One small bleeding point on the liver bed was cauterized. All irrigation was then aspirated from the abdominal cavity. The cystic artery stump, cystic duct stump and liver bed were all seen to be clean and dry. At this point, attention was turned to the periumbilical region where omental adhesions were taken down with both blunt dissection and use of the endo-andrea and minimal use of electrocautery. With all of the omentum completely taken down and with hemostasis assured, insufflation was discontinued. The upper abdominal trocars were removed under direct vision. No bleeding was noted from the trocar sites. The laparoscope and umbilical port were removed. The fascia was closed in the umbilicus with interrupted 0 Vicryl suture. The remaining local anesthetic was injected into each of the sites. The skin was closed at each of the trocar sites with 4-0 Vicryl in an interrupted buried fashion. All trocar sites were dressed with Steri-Strips. The patient was extubated and taken back to the recovery room in stable condition. She tolerated the procedure well. MD ALONDRA Johnson/ /9:23 AM /6:39 PM
== END | disposition home or self-care (01) ==
LOC: ESDC 06:40
PROVIDERS: ATTEND Surgery Trauma Surgery
DX: K80.10 Calculus of gallbladder with chronic cholecystitis without obstruction (principal); K66.0 Peritoneal adhesions (postprocedural) (postinfection)
CPT/HCPCS: 00790; 47562; 88304; J0131; J2250; J2405; J3010; J3370; J7050; J7120